=== PATIENT | female | born 1950 | race Caucasian/White ===

== ENCOUNTER 2024-08-09 12:38 | Outpatient (CLI) | payer OTHER, SELFPAY | END 2024-08-09 12:39 | disposition home or self-care (01) | LOC: ANHAUDIO 12:42 | PROVIDERS: PCP Internal Medicine; Visit Provider Otolaryngology | DX: H90.6 Mixed conductive and sensorineural hearing loss, bilateral (principal); H93.12 Tinnitus, left ear; J31.0 Chronic rhinitis | CPT/HCPCS: 92557; 92567 ==